=== PATIENT | male | born 1950 | race Asian ===

== ENCOUNTER 2017-11-26 15:40 | Outpatient (CLI) | payer OTHER ==
--- NOTE | 2017-11-26 17:20 | RAD ---
RIGHT HIP TWO VIEWS: 11/26/17 HISTORY: Right hip pain. FINDINGS: There is mild joint space narrowing, osteophytosis and subchondral sclerosis. Femoral head contour is maintained. No acute fracture, dislocation or aggressive osseous erosions are apparent. IMPRESSION: Mild osteoarthritic changes right hip. POS: NIA
== END 2017-11-26 15:41 | disposition home or self-care (01) ==
LOC: MADRAD 15:40
PROVIDERS: ATTEND Family Medicine
DX: M25.551 Pain in right hip (principal); M16.11 Unilateral primary osteoarthritis, right hip

== ENCOUNTER 2017-12-03 22:33 | Emergency (ER) | payer OTHER ==
[~2017-12-03 22:33] MED LIST: Donnatal Elixir 16.2 MG/5 ML UDCUP ONE; Sodium Chloride 0.9% 1,000 ML BAG ONE
[2017-12-03] MEDS ORDERED: Donnatal Elixir 16.2 MG/5 ML UDCUP ONE (23:14)
[2017-12-03] MEDS ORDERED: Mag-Al Plus 1200 MG/1200 MG/120 MG/30 ML UDCUP ONE (23:14)
[2017-12-03] MEDS ORDERED: Ondansetron HCl/PF 4 MG/2 ML Vial ONE (23:14)
[2017-12-03] MEDS ORDERED: Ketorolac Tromethamine 30 MG/ML VIAL ONE (23:14)
[2017-12-03] MEDS ORDERED: Lidocaine Viscous Sol 2% 15 ml UD Cup ONE (23:14)
[2017-12-03 23:15] LABS: Bilirubin Small (Negative); Blood, Urine Moderate (Negative); Glucose, Urine (Dipstick) Negative (Negative); Leukocyte Small (Negative); Nitrite Positive (Negative); Protein, Urine (Dipstick) 100 mg/dL (Neg-Trace); Specific Gravity, Urine 1.015 (1.005-1.030)
--- NOTE | 2017-12-03 23:27 | RAD ---
CHEST ONE VIEW 12/03/17 HISTORY: Upper abdominal pain. Fever. FINDINGS: Normal cardiac silhouette. Pulmonary vessels and hilum are normal. Costophrenic angles are clear. No consolidation or mass. No pneumothorax or osseous abnormalities. Atherosclerosis of the aorta is note d. IMPRESSION: 1. No acute cardiopulmonary process. 2. Atherosclerosis. POS: [facility]
[2017-12-03 23:30] LABS: Clarity Cloudy (Clear)
[2017-12-03 23:31] LABS: Bacteria/HPF 4+ HPF (None Seen); RBC/HPF GREATER THAN 50-TNTC HPF (0-3); Squamous Epithelial 0-3 HPF (0-3)
[2017-12-03 23:42] LABS: ALT (SGPT) 44 U/L (8-55); AST (SGOT) 20 U/L (5-34); Albumin 3.4 g/dL (3.4-4.8); Alkaline Phosphatase 231 U/L (40-150); Anion Gap 19 mmol/L (10-20); BUN (Urea Nitrogen) 25 mg/dL (8.4-25.7); Bilirubin, Total 2.8 mg/dL (0.2-1.2); Calc. Creatinine Clearance 0 mL/min (70-130); Carbon Dioxide 21 mmol/L (23-31); Chloride 94 mmol/L (98-107); Estimated GFR-MDRD 39; Globulin 3.7 g/dL (2.4-3.5); Glucose 139 mg/dL (80-115); Lipase 22 U/L (8-78); Protein, Total 7.1 g/dL (5.8-8.1); Sodium 130 mmol/L (136-145)
[2017-12-03 23:47] LABS: Band 8 % (5-11); Lymphocytes 1 % (21-51); MDiff Complete? YES; Monocytes 4 % (0-10); Neutrophil 86 % (42-75); PLT Morphology Comment Appears Adequate; RBC Morphology Normal; Reactive Lymphocytes 1 % (0-10)
[2017-12-03 23:48] LABS: Hemoglobin 15.6 g/dL (14.0-18.0); Mean Corpuscular HGB CONC 33.9 g/dL (32.0-36.0); Mean Corpuscular Hemoglobin 31.4 pg (27.0-31.0); Mean Corpuscular Volume 92.6 fl (80.0-94.0); Mean Platelet Volume 6.5 fL (7.4-10.4); Platelet Count 241 thou/uL (130-400); RBC Distribution Width 10.9 % (11.5-14.5); Red Blood Cell (RBC) Count 4.95 mill/uL (4.70-6.10); White Blood Cell (WBC) Count 40.2 thou/uL (4.8-10.8)
[2017-12-03] MEDS ORDERED: Acetaminophen 500 MG TAB ONE (23:51)
== END 2017-12-04 00:36 | disposition short-term general hospital (02) ==
LOC: MADERS 22:33
DX: A41.9 Sepsis, unspecified organism (principal); N39.0 Urinary tract infection, site not specified; D72.829 Elevated white blood cell count, unspecified; I10 Essential (primary) hypertension
CPT/HCPCS: 36415; 71045; 80053; 81001; 82150; 83605; 83690; 83880; 85025; 87040; 87077; 87086; 87149; 87186; 96365; 96368; 96375; J1885; J1956; J2405; J3370; J7050

== ENCOUNTER 2019-02-10 08:06 | Outpatient (CLI) | payer OTHER ==
--- NOTE | 2019-02-10 09:08 | RAD ---
TWO VIEW CHEST: INDICATIONS: History of lung cancer. FINDINGS: There is near complete opacification of the right hemithorax. Interstitial prominence of the left rico ng is present. The cardiomediastinal silhouette is shifted to the left due to the opacified right he mithorax. IMPRESSION: 1. Near complete opacification of the right hemithorax. 2. Leftward deviation of the cardiomediastinal silhouette. POS: NIA
== END 2019-02-10 08:07 | disposition home or self-care (01) ==
LOC: MADRAD 08:06
PROVIDERS: ATTEND Internal Medicine Hematology & Oncology
DX: C34.90 Malignant neoplasm of unspecified part of unspecified bronchus or lung (principal); R06.02 Shortness of breath; R91.8 Other nonspecific abnormal finding of lung field; Z87.09 Personal history of other diseases of the respiratory system
CPT/HCPCS: 71046